=== PATIENT | female | born 1995 | race African-American/Black ===

== ENCOUNTER 2016-06-15 12:03 | Emergency (ER) | payer MEDICAID, OTHER ==
[~2016-06-15] VITALS: Ht 162.6 cm; Wt 100.0 kg
[2016-06-15 12:08] VITALS: BP 143/81; PULSE 102; RESP 15; TEMP 98.3; O2SAT 98
--- NOTE | 2016-06-15 13:02 | PD ---
HPI Chief Complaint: Cold / Flu Symptoms Time Seen by Provider: 13:02 Travel History International Travel<30 days: No Contact w/Intl Traveler<30days: No Traveled to known affect area: No History of Present Illness HPI 21-year-old female presents to the emergency Department with complaint of nasal congestion, cough, feeling of fullness in her ears, body aches, headache, sore throat 2-3 days. Says she has felt hot but has not taken her temperature and cannot report a MAXIMUM TEMPERATURE. Denies nausea, vomiting, abdominal pain. Denies wheezing, shortness of breath, chest pain. Has tried taking Robitussin with some relief of symptoms. No one else is sick with similar symptoms. No known aggravating factors. Does not know she received the influenza vaccine. No known allergies. No other modifying factors or associated signs and symptoms. PFSH Past Medical History ?: Not Social History Tobacco Use: No Allergies-Medications (Allergen,Severity, Reaction): Coded Allergies: No Known Allergies (Unverified , 06/15/16) Reported Meds & Prescriptions Reported Meds & Active Scripts Active Nasonex Nasal Walker (Mometasone Furoate) 50 Mcg/Act Naspr 2 Walker EACH NARE DAILY PRN Tessalon Perles (Benzonatate) 100 Mg Cap 100 Mg PO TID PRN Ibuprofen 800 Mg Tab 800 Mg PO Q6HR PRN Review of Systems Except as stated in HPI: all other systems reviewed are Neg Physical Exam Narrative GENERAL: Well-nourished, well-developed female patient, in no acute distress; afebrile, nontoxic-appearing SKIN: Warm and dry. No rash. HEAD: Atraumatic. Normocephalic. EYES: Pupils equal and round at 3 mm with brisk reaction. No scleral icterus. No injection or drainage. PERRLA. ENT: Mucosa pink and moist. No erythema or exudates. No uvular edema. No uvular , palatal, or tonsillar deviation. Airway patent. EARS: Bilateral pinnae and external canals appear within normal limits. Bilateral tympanic membranes without erythema, dullness or perforation. NECK: Trachea midline. No lymphadenopathy. CARDIOVASCULAR: Regular rate and rhythm. No murmur appreciated. RESPIRATORY: No accessory muscle use. Clear to auscultation. Breath sounds equal bilaterally. GASTROINTESTINAL: Abdomen soft, non-tender, nondistended. Hepatic and splenic margins not palpable. Bowel sounds are active 4 quadrants. MUSCULOSKELETAL: No obvious deformities. No clubbing. No cyanosis. No edema. NEUROLOGICAL: Awake and alert. Oriented 3. No obvious cranial nerve deficits. Motor grossly within normal limits. Normal speech. Moves all extremities. 5/5 strength to all extremities. PSYCHIATRIC: Appropriate mood and affect; insight and judgment normal. Data Data Last Documented VS Vital Signs Date Time Temp Pulse Resp B/P Pulse Ox O2 Delivery O2 Flow Rate FiO2 06/15/16 12:08 98.3 102 15 143/81 98 Orders Group A Rapid Strep Screen (06/15/16 13:01) Influenzae A/B Antigen (06/15/16 13:01) Ibuprofen (Motrin) (06/15/16 13:15) Strep Culture (Group A) (06/15/16 13:15) MDM Medical Decision Making Medical Screen Exam Complete: Yes Emergency Medical Condition: Yes Medical Record Reviewed: Yes Differential Diagnosis Influenza, strep pharyngitis, viral illness Narrative Course 21-year-old female physical examination consistent with viral illness. And is afebrile and nontoxic-appearing. Reports subjective fever but cannot report a MAXIMUM TEMPERATURE. Heart rate during physical exam approximately 80-90 bpm. ibuprofen ordered. Influenza and rapid strep ordered. 1355: Influenza and rapid strep negative. Discussed viral illness and symptom management. Ibuprofen, Nasonex nasal spray, Tessalon Perles prescribed for home. Patient verbalizes understanding and agreement with treatment plan. Patient is medically cleared and stable for discharge. Discussed reasons to return to the emergency department. Instructed patient to follow up with primary care provider. Patient agrees with treatment plan. The patients vital signs are stable and the patient is stable for outpatient follow-up and treatment. Patient discharged home, stable and in no acute distress. Diagnosis Primary Impression: Viral illness Referrals: Primary Care Physician Patient Instructions: Cold Symptoms (ED), General Instructions, Safe Use of Cough and Cold Medicines (ED) Departure Forms: School Release, Return to School Date: Jun 17, 2016 Tests/Procedures, Work Release Enter return to work date: Jun 17, 2016 Additional Instructions: Ibuprofen or Tylenol as directed and as needed to reduce fever; may alternate ibuprofen and Tylenol as needed every 3 hours to minimize fever Xxom-[id number] cough and cold medications as directed and as needed for symptom management Get plenty of sleep/rest Drink plenty of fluids to prevent dehydration [place] diet to encourage nutrition such as crackers, fruit, applesauce, toast, soup etc. Use an air humidifier/turn off ceiling fans Follow-up with your primary care provider Return immediately to the emergency department with worsening of symptoms Med/Other Pt SpecificInfo: Prescription(s) given Scripts Mometasone Nasal Walker (Nasonex Nasal Walker)50 Mcg/Act Naspr2 Walker EACH NARE DAILY PRN (NASAL CONGESTION) #1 BOTTLE Ref 0 Prov:Ewelina Mixon 06/15/16 Benzonatate (Tessalon Perles)100 Mg [id number] Mg PO TID PRN (COUGH) #20 CAP Ref 0 Prov:Ewelina Mixon 06/15/16 Ibuprofen 800 Mg [id number] Mg PO Q6HR PRN (PAIN) #30 TAB Ref 0 Prov:Ewelina Mixon 06/15/16 Disposition: 01 DISCHARGE HOME Condition: Stable Ewelina Mixon Jun 15, 2016 13:02
[2016-06-15] MEDS ORDERED: IBUPROFEN 800 MG TAB PO ONE (13:15)
[2016-06-15] MEDS ORDERED: IBUP800T23 PO (13:58)
[2016-06-15] MEDS ORDERED: MOME17I EACH NARE (13:58)
[2016-06-15] MEDS ORDERED: BENZ100 PO (13:58)
== END 2016-06-15 14:26 | disposition home or self-care (01) ==
LOC: NETRI 12:03
DX: B34.9 Viral infection, unspecified (principal)
CPT/HCPCS: 87081; 87804; 87880; 99283